=== PATIENT | male | born 1965 | race Caucasian/White ===

== ENCOUNTER 2018-02-15 23:46 | Emergency (ER) | payer BC ==
[2018-02-16] MEDS ORDERED: HYDROmorphone 1 MG/ML 1 ML SYRINGE IVP STA (01:22)
[2018-02-16 01:28] LABS: Basophils # (A) 0.1 k/uL (0-0.2); Basophils % (A) 1 %; Eosinophils # (A) 0.2 k/uL (0-0.7); Eosinophils % (A) 3 %; HCT 42.7 % (39.0-53.0); HGB 15.6 gm/dL (13.0-17.5); Hyperchromasia Slight; Lymphocytes # (A) 1.6 k/uL (1.0-4.8); Lymphocytes % (A) 25 %; MCH 33.2 pg (25.0-35.0); MCHC 36.4 g/dL (31.0-37.0); MCV 91.1 fL (80.0-100.0); Mean Platelet Volume 6.8; Monocytes # (A) 0.4 k/uL (0-1.0); Monocytes % (A) 7 %; Neutrophils % (A) 63 %; Platelet Count 143 k/uL (150-450); RBC 4.69 m/uL (4.30-5.90); RDW 13.7 % (11.5-15.5); WBC 6.2 k/uL (3.8-10.6)
--- NOTE | 2018-02-16 01:33 | ED ---
Male Urogenital HPI - General Chief complaint: Urogenital Stated complaint: unable to urinate or have BM post procedure Time Seen by Provider: 02/16/18 00:57 Source: patient Mode of arrival: ambulatory Limitations: no limitations - History of Present Illness Initial comments: This patient is a 52-year-old man with history of previous radical prostatectomy. He presents with complaint of urinary retention since 8 PM. The patient proximally one month ago had placement of the prosthesis and artificial sphincter. The patient has not been able to pass urine for the past 5 hours. He does complain of severe pressure pain in the suprapubic area. No back pain. No fever or chills. He had noted that there was trace of blood and urine prior to all this developing. MD Complaint: other (Urinary retention) Onset/Timin -: hour(s) Location: abdomen Radiation: none Severity: severe Quality: other (Should) Consistency: constant Improves with: none Worsens with: none Reports: urinary retention, blood in urine - Related Data Previous Rx's Medication Instructions Recorded Ciprofloxacin HCl [Cipro] 500 mg PO BID 3 Days #6 tab 02/16/18 Allergies Allergy/AdvReac Type Severity Reaction Status Date / Time No Known Allergies Allergy Verified 02/15/18 23:59 Review of Systems ROS Statement: Those systems with pertinent positive or pertinent negative responses have been documented in the HPI. ROS Other: All systems not noted in ROS Statement are negative. Constitutional: Denies: fever, chills Respiratory: Denies: cough, dyspnea Cardiovascular: Denies: chest pain, palpitations Gastrointestinal: Reports: abdominal pain. Denies: nausea, vomiting, diarrhea, constipation Genitourinary: Reports: hematuria, other (Urinary retention). Denies: urgency, dysuria Musculoskeletal: Denies: back pain Skin: Denies: rash Neurological: Denies: headache, weakness Past Medical History Past Medical History: Hypertension Additional Past Medical History / Comment(s): prostate ca. History of Any Multi-Drug Resistant Organisms: None Reported Additional Past Surgical History / Comment(s): prostate resection. penile prosthesis. Past Psychological History: No Psychological Hx Reported Smoking Status: Current every day smoker Past Alcohol Use History: Daily Past Drug Use History: None Reported General Exam Limitations: no limitations General appearance: alert, in no apparent distress Head exam: Present: atraumatic Eye exam: Present: normal appearance, scleral icterus, conjunctival injection Respiratory exam: Present: normal lung sounds bilaterally. Absent: respiratory distress, wheezes, rales, rhonchi, stridor Cardiovascular Exam: Present: regular rate, normal rhythm, normal heart sounds. Absent: systolic murmur, diastolic murmur, rubs, gallop GI/Abdominal exam: Present: soft, guarding (Suprapubic), mass (There is suprapubic fullness consistent with bladder). Absent: distended, tenderness, rebound, rigid, hernia exam: Present: other (Patient does have a drop of blood at the underside of the penis.) Extremities exam: Present: normal inspection, normal capillary refill. Absent: pedal edema, calf tenderness Back exam: Present: normal inspection. Absent: CVA tenderness (R), CVA tenderness (L) Neurological exam: Present: alert Skin exam: Present: warm, dry, intact, normal color. Absent: rash Course Vital Signs 02/15/18 02/16/18 02/16/18 23:55 01:17 04:30 Temperature 98.2 F 97.8 F 98.2 F Pulse Rate 84 70 64 Respiratory 16 20 18 Rate Blood Pressure 135/86 142/85 121/86 O2 Sat by Pulse 99 99 98 Oximetry - Reevaluation(s) Reevaluation #1: 02/16/18 01:[address] Aaron Reevaluation #2: 02/16/18 01:33 At the patient request, we did attempt to reach his urologist Dr. Pearson, of [facility]. After a few minutes the patient stated that he was having too much pain in the bladder and could not wait to her back and did request that we attempt to place Farfan catheter. I ensured that the patient's AMS device was empty by pumping until flat. I was able to place a 12-[place] Farfan catheter without any complication with drainage of clear yellow urine. Patient tolerate procedure well without complaint. Reevaluation #3: 02/16/18 01:[address] Omer, covering for the patient's urologist. Medical Decision Making - Medical Decision Making Additional history reveals that the patient has had urinary retention number of times and reportedly had 4-6 catheterizations for this problem. I was going to remove the catheter after drinking the patient's bladder but he states that he has had to go home with catheters in previously and he would like to keep this one and in case the retention were to recur. Discussed reasons for wanting to remove the catheter with patient very insistent that it stand. - Lab Data Result diagrams: 02/16/18 01:17 02/16/18 01:17 Lab Results 02/16/18 02/16/18 02/16/18 Range/Units 01:17 01:17 02:02 WBC 6.2 (3.8-10.6) k/uL RBC 4.69 (4.30-5.90) m/uL Hgb 15.6 (13.0-17.5) gm/dL Hct 42.7 (39.0-53.0) % MCV 91.1 (80.0-100.0) fL MCH 33.2 (25.0-35.0) pg MCHC 36.4 (31.0-37.0) g/dL RDW 13.7 (11.5-15.5) % Plt Count 143 L (150-450) k/uL Neutrophils % 63 % Lymphocytes % 25 % Monocytes % 7 % Eosinophils % 3 % Basophils % 1 % Neutrophils # 4.0 (1.3-7.7) k/uL Lymphocytes # 1.6 (1.0-4.8) k/uL Monocytes # 0.4 (0-1.0) k/uL Eosinophils # 0.2 (0-0.7) k/uL Basophils # 0.1 (0-0.2) k/uL Hyperchromasia Slight Sodium 138 (137-145) mmol/L Potassium 4.5 (3.5-5.1) mmol/L Chloride 108 H (98-107) mmol/L Carbon Dioxide 19 L (22-30) mmol/L Anion Gap 11 mmol/L BUN 12 (9-20) mg/dL Creatinine 0.71 (0.66-1.25) mg/dL Est GFR (CKD-EPI)AfAm >90 (>60 ml/min/1.73 sqM) Est GFR (CKD-EPI)NonAf >90 (>60 ml/min/1.73 sqM) Glucose 117 H (74-99) mg/dL Calcium 9.9 (8.4-10.2) mg/dL Urine Color Yellow Urine Appearance Cloudy (Clear) Urine pH 5.0 (5.0-8.0) Ur Specific [place] 1.003 (1.001-1.035) Urine Protein Trace H (Negative) Urine Glucose (UA) Negative (Negative) Urine Ketones Negative (Negative) Urine Blood Large H (Negative) Urine Nitrite Negative (Negative) Urine Bilirubin Negative (Negative) Urine Urobilinogen <2.0 (<2.0) mg/dL Ur Leukocyte Esterase Negative (Negative) Urine RBC 1 (0-5) /hpf Urine WBC 1 (0-5) /hpf Ur Squamous Epith Cells 1 (0-4) /hpf Amorphous Sediment Occasional H (None) /hpf Urine Bacteria Occasional H (None) /hpf Disposition Clinical Impression: Urinary retention Disposition: HOME SELF-CARE Condition: Good Instructions: Urinary Retention in Men (ED) Prescriptions: Ciprofloxacin HCl [Cipro] 500 mg PO BID 3 Days #6 tab Is patient prescribed a controlled substance at d/c from ED?: No Referrals: Nikita Lee MD [Primary Care Provider] - 1-2 days Олег Aaron MD [STAFF PHYSICIAN] - 1-2 days
[2018-02-16 01:37] LABS: Anion Gap 11 mmol/L; Blood Urea Nitrogen 12 mg/dL (9-20); Calcium 9.9 mg/dL (8.4-10.2); Carbon Dioxide 19 mmol/L (22-30); Chloride 108 mmol/L (98-107); Glucose 117 mg/dL (74-99); Potassium 4.5 mmol/L (3.5-5.1); Sodium 138 mmol/L (137-145)
[2018-02-16 02:32] LABS: Amorphous Sediment,Urine Occasional /hpf; Appearance,Urine Cloudy (Clear); Bacteria,Urine Occasional /hpf; Bilirubin,Urine Negative (Negative); Blood,Urine Large (Negative); Color,Urine Yellow; Glucose,Urine (UA) Negative (Negative); Ketones,Urine Negative (Negative); Leukocyte Esterase,Urine Negative (Negative); Nitrite,Urine Negative (Negative); Protein,Urine Trace (Negative); RBC,Urine 1 /hpf (0-5); Specific Gravity,Urine 1.003 (1.001-1.035); Squamous Epithelial Cell,Urine 1 /hpf (0-4); Urobilinogen,Urine <2.0 mg/dL (<2.0)
[2018-02-16 06:20] VITALS: BP 121/86; PULSE 64; RESP 18; TEMP 98.2
== END 2018-02-16 04:20 | disposition home or self-care (01) ==
LOC: SUPCPDRO 23:46 → EC 23:46
DX: R33.9 Retention of urine, unspecified (principal); R19.09 Other intra-abdominal and pelvic swelling, mass and lump; R31.9 Hematuria, unspecified; R10.30 Lower abdominal pain, unspecified; F17.200 Nicotine dependence, unspecified, uncomplicated; Z85.46 Personal history of malignant neoplasm of prostate; Z90.79 Acquired absence of other genital organ(s); Z98.890 Other specified postprocedural states
CPT/HCPCS: 36415; 80048; 85025; 81001; 99283; 96374; 51702; J1170